=== PATIENT | male | born 1990 | race Caucasian/White ===

== ENCOUNTER 2019-05-06 18:02 | Emergency (ER) | payer BC ==
[~2019-05-06] VITALS: Ht 172.7 cm; Wt 70.3 kg
== END 2019-05-06 23:00 | disposition home or self-care (01) ==
LOC: ED 18:02
DX: R19.7 Diarrhea, unspecified (principal); Z87.891 Personal history of nicotine dependence
CPT/HCPCS: 74177; 80053; 81001; 83690; 85025; 99284-25; Q9967

== ENCOUNTER 2023-03-16 05:45 | Day surgery (SDC) | payer OTHER ==
[2023-03-07 09:22] VITALS: BP 11/73
[~2023-03-16] VITALS: Ht 172.7 cm; Wt 75.0 kg
[~2023-03-16 05:45] MED LIST: CLINDAMYCIN PHO30 GM; CLOBETASOL PROP15 GM; DUPIXENT300 MG/2 M; NICOTINE1 EAC1
[2023-03-16 06:01] VITALS: BP 126/72
--- NOTE | 2023-03-16 08:58 | NUR ---
03/16/23 0858 Eliza Grant 0839- PT ARRIVES TO PACU WITH OPA IN PLACE, 6L O2 PER MASK, INTERMITTENT ASSISTANCE WITH AIRWAY FOR SNORING RESPIRATIONS. LR INFUSING TO RFA. NON AROUSABLE AT THIS TIME. ALL MONITORS IN PLACE.
[2023-03-16] MEDS ORDERED: IBUPROFEN600 MG PO (08:59)
[2023-03-16] MEDS ORDERED: OXYCODON-ACETA1 EAC2 PO (09:00)
[2023-03-16] MEDS ORDERED: ACETAMINOPHEN500 MG PO (09:00)
[2023-03-16 09:20] VITALS: BP 101/57
[2023-03-16 10:24] VITALS: BP 116/63
--- NOTE | 2023-03-16 11:16 | NUR ---
0920 PATIENT BACK FROM PACU TO DAY SURGERY ROOM 6. PATIENT REPORT RECIEVED FROM ALISHA MELTON. PATIENT DROWSY BUT ORIENTED. PATIENT BREATHING EQUAL AND UNLABORED. OXYGEN SATURATIONS ABOVE 90% ON ROOM AIR. PATIENT STATES HE HAD NO PAIN. PATIENT SURGICAL DRESSING IS CLEAN, DRY AND INTACT. IVF INFUSING. PATIENT GIVEN WATER AND PUDDING. 0945 PATIENT DENIES PAIN AT THIS TIME. PATIENT AMBULATED TO THE RESTROOM. PATIENT DENIES BEING NAUSEATED. PATIENT VOIDED 300 MLS OF CLEAR AND YELLOW URINE. 1020 PATIENT ALERT AND ORIENTED. BREATHING EQUAL AND UNLABORED. OXYGEN SATURATIONS ABOVE 90% ON ROOM AIR. PATIENT DENIES PAIN OR BEING NAUSEATED. PATIENT CALLED MEDICAL TRANSPORT. PATIENT GIVEN DISCHARGE INSTRUCTIONS. PATIENT HAD NO QUESTIONS AT THIS TIME. IV D/C'D WNL. 1033 PATIENT WHEELED OUT OF FACILITY TO MEDICAL TRANSPORT. PATIENT GIVEN PERSCRIPTION. NO FUTHER NEEDS.
--- NOTE | 2023-03-16 14:14 | OR ---
[facility] [address] [place], [place] [address] Signed DATE OF OPERATION: 03/16/2023 SURGEON: Adrian Lozada MD PREOPERATIVE DIAGNOSIS: Left inguinal hernia. POSTOPERATIVE DIAGNOSIS: Left inguinal hernia, indirect with sliding component (bladder fat). PROCEDURES: Repair of left inguinal hernia, sliding type with excision of hernia sac and implantation of Prolene mesh (underlay technique). Excision of cord lipoma. ANESTHESIA: General, LMA, Nella Ziggy, [employer]PER[employer] and local 10 mL of 0.25% Marcaine with epinephrine. INDICATION: This 32-year-old white man is a patient of Kellie Aburto and noted to have left inguinal hernia. He has noted the groin bulge for several months. He has never had incarceration and it reduces freely. He has no associated urinary outlet obstructive symptoms, chronic cough, or constipation. He was admitted at this time to undergo repair of the left inguinal hernia. He understands the risk of bleeding, infection, recurrence, and other unforeseen complications. FINDINGS: A small incision was used in the left groin for access to the groin. A moderate size indirect hernia sac was noted. The medial wall had bladder fat sliding type component. The bladder fat was ultimately freed from the hernia sac. The hernia sac divided and amputated. There was a little attenuation of the floor. Implantation of Prolene mesh in an underlay technique was ultimately accomplished. Cord structures were preserved. PROCEDURE IN DETAIL: The patient was brought to the operating room, given a general LMA type anesthetic. Preoperative antibiotic of Ancef was given and sequential compression device stockings used as was heparin subcutaneously administered. The lower abdomen had already been shaved by the patient apparently. The lower abdomen was prepared with a chlorhexidine solution and draped sterilely. Cephalad to the pubic tubercle a small incision was made along the line of skin tension. Dissection carried through the subcutaneous tissue with electrocautery and blunt dissection. A bulky lipoma of the cord was noted. The cord Electronically Signed By: ADRIAN LOZADA MD 03/16/23 1414 PATIENT NAME: BRENNEN BRIGHT OPERATIVE REPORT DATE OF : 86 REPORT #: [id number] PHYSICIAN: ADRIAN LOZADA MD PCP: KELLIE ABURTO PA-C REPORT IS CONFIDENTIAL AND NOT TO BE RELEASED WITHOUT AUTHORIZATION [facility] [address] [place], [place] [address] Signed disseminated from beneath the external ring. External oblique fascia was incised and the cord carefully mobilized from the floor in continuity with the bulky lipoma of the cord. The cord lipoma was dissected free and ultimately excised. An indirect hernia sac was identified and dissected free from the cord structures with meticulous care, identifying the vas deferens and other cord structures and preserving it completely. Once the hernia sac was freed, it was clearly a moderate-sized hernia. Hernia sac was elevated and incised and inspected internally. The medial wall consisted of bladder fat. Fusion of this bladder fat was noted but with meticulous dissection using electrocautery dominantly, the bladder fat could be mobilized more fully placed into the abdominal cavity allowing for ligation of the base of the wide-mouth hernia sac with running 2-0 silk suture. Additional silk suture was applied and redundant hernia sac amputated and passed for pathology. Inspection of the floor showed it to be largely intact, although there was an enlarged internal ring. The attenuated fibers of the fascia transversalis were incised revealing the inferior epigastric vessels. These were carefully preserved. A segment of Prolene mesh was cut to an elliptical configuration and secured in an underlay technique to cover the entire floor. The tail was taken around the graft laterally with all due care. 2-0 Prolene was used to secure the mesh in an underlay technique. Noting that there was adequate room at the aperture of the cord in relation to the mesh. 10 mL of 0.25% Marcaine with epinephrine injected locally. The external oblique was secured with a running 2-0 Vicryl suture. Nirali layer was reapproximated with interrupted 3-0 Vicryl and skin closed with running subcuticular 3-0 Vicryl. Steri-Strips were applied as was an Acticoat dressing. MD DULCE Martinez/MODL /[id number] cc: VLAD Graves Copies: ~ Electronically Signed By: ADRIAN LOZADA MD 03/16/23 1414 PATIENT NAME: BRENNEN BRIGHT OPERATIVE REPORT DATE OF : 86 REPORT #: [id number] PHYSICIAN: ADRIAN LOZADA MD PCP: KELLIE ABURTO PA-C REPORT IS CONFIDENTIAL AND NOT TO BE RELEASED WITHOUT AUTHORIZATION
--- NOTE | 2023-03-20 14:33 | PATH ---
[facility] [address], [place] [address] Signed SPECIMEN(S): A LEFT SPERMATIC CORD SPECIMEN(S): B LEFT INDIRECT HERNIA SAC SPECIMEN SOURCE: A. LEFT SPERMATIC CORD B. LEFT INDIRECT HERNIA SAC CLINICAL HISTORY: Left inguinal hernia repair. FINAL PATHOLOGIC DIAGNOSIS: A. Left spermatic cord: - [place]mer lobulated adipose tissue and fibro vasculature, negative for atypical features. B. Left indirect hernia sac: - Benign fibroadipose and vascular tissue consistent with hernia sac. JVR:[id number] MICROSCOPIC EXAMINATION: Histologic sections of all submitted blocks are examined by light microscopy. These findings, together with the gross examination, support the pathologic diagnosis. GROSS DESCRIPTION: A. The specimen, labeled and designated "Bright, P," and designated on the requisition "lipoma of left spermatic cord," is received in formalin and consists of a 4.6 x 2.7 x 1.3 cm, pink-red, transparent, membranous, sac-like structure that contains a yellow-hoffman, multilobulated adipose tissue. Recreation Therapy Director sections are submitted in (A1). B. The specimen, labeled and designated "Bright, P," and designated on the requisition "left indirect hernia sac," is received in formalin and consists of a 6.1 x 2.5 x 0.6 cm, violaceous, membranous, sac-like structure with attached yellow-hoffman adipose tissue. Recreation Therapy Director sections are submitted in (B1). FB (under the direct supervision of a pathologist) The Gross Description was prepared using a voice recognition system. The report was reviewed for accuracy; however, sound-alike word errors, addition and/or deletions may occur. If there is any question about this report, please contact Client Services. PERFORMING LABORATORY: PATIENT NAME: BRENNEN BRIGHT PATHOLOGY DATE OF : 86 REPORT #: [id number] PHYSICIAN: MARTHA PATHOLOGY PCP: KELLIE EDDY PA-C REPORT IS CONFIDENTIAL AND NOT TO BE RELEASED WITHOUT AUTHORIZATION [facility] [address], [place] [address] Signed Technical component was performed by [facility], [address] [place] [id number] (CLIA# [id number]). Professional interpretation was performed by [facility], [address] [place] [id number] (CLIA#: [id number]). Diagnostician: Xavier Gaytan MD Pathologist Electronically Signed 03/20/2023 Copies: ~ PATIENT NAME: BRENNEN BRIGHT PATHOLOGY DATE OF : 86 REPORT #: [id number] PHYSICIAN: MARTHA PATHOLOGY PCP: BROWN,KELLIE PA-C REPORT IS CONFIDENTIAL AND NOT TO BE RELEASED WITHOUT AUTHORIZATION
== END 2023-03-16 10:33 | disposition home or self-care (01) ==
LOC: DS 05:45
PROVIDERS: ATTEND Surgery
PROC: 0YU60JZ Supplement Left Inguinal Region with Synthetic Substitute, Open Approach (ICD-10-PCS; principal; 2023-03-16 07:30)
DX: K40.90 Unilateral inguinal hernia, without obstruction or gangrene, not specified as recurrent (principal); S42.002D Fracture of unspecified part of left clavicle, subsequent encounter for fracture with routine healing; L30.9 Dermatitis, unspecified
CPT/HCPCS: 00840; C1781; J0131; J0690; J1100; J1644; J1885; J2001; J2405; J2704; J3490; J7121